=== PATIENT | female | born 1945 | race Caucasian/White ===

== ENCOUNTER 2021-05-22 11:38 | Emergency (ER) | payer MEDICARE, OTHER, SELFPAY ==
[2021-05-22 11:51] VITALS: BP 115/74; PULSE 76; RESP 18; TEMP 36.6; O2SAT 98
[2021-05-22 12:26] VITALS: BP 115/74; PULSE 76; RESP 18; TEMP 36.6; O2SAT 98
--- NOTE | 2021-05-22 12:37 | ED.EAR ---
HPI - Ear Problem General Chief complaint: Ear Stated complaint: Possible Ear infection in left Ear Time Seen by Provider: 05/22/21 12:37 Source: patient Mode of arrival: ambulatory Limitations: no limitations History of Present Illness HPI Narrative: Feli Nguyen is a 75 yo female with a PMH of GERD and depression who [facility] with left ear pain that started at 2:00 in the morning on Wednesday and has not substantially improved. She has been using Tylenol or ibuprofen for pain. She called her primary care physician for an appointment and he said the earliest they could see her was September She has tardive dyskinesia from psychiatric medications; states that her current level of depression is well controlled Related Data Home Medications Medication Instructions Recorded Confirmed albuterol sulfate 2 puff INHALATION QID PRN 05/22/21 05/22/21 alprazolam 0.25 mg PO BID 05/22/21 05/22/21 amlodipine 10 mg PO DAILY 05/22/21 05/22/21 atorvastatin 40 mg PO DAILY 05/22/21 05/22/21 azelastine 137 mcg INTRANASAL Q12H 05/22/21 05/22/21 uawftdfahm-yqinmtvvpazba-gloc 1 tablet PO Q4H PRN 05/22/21 05/22/21 [Esgic] caffeine 200 mg PO BID 05/22/21 05/22/21 deutetrabenazine 24 mg PO BID 05/22/21 05/22/21 donepezil 10 mg PO BID 05/22/21 05/22/21 fluticasone propion-salmeterol 1 inh INHALATION Q12H 05/22/21 05/22/21 fluticasone propionate 1 spray INTRANASAL DAILY 05/22/21 05/22/21 gabapentin 300 mg PO TID 05/22/21 05/22/21 metoclopramide HCl 10 mg PO DAILY 05/22/21 05/22/21 omeprazole 20 mg PO BID 05/22/21 05/22/21 oxybutynin chloride 5 mg PO DAILY 05/22/21 05/22/21 sertraline 200 mg PO DAILY 05/22/21 05/22/21 temazepam 15 mg PO HS PRN 05/22/21 05/22/21 trihexyphenidyl 5 mg PO QID 05/22/21 05/22/21 Allergies Allergy/AdvReac Type Severity Reaction Status Date / Time amitriptyline Allergy Anxiety Verified 05/22/21 14:09 amoxicillin Allergy Hallucinati Verified 05/22/21 14:08 ng ondansetron Allergy Hallucinati Verified 05/22/21 14:08 ng sumatriptan Allergy Anxiety Verified 05/22/21 14:09 lithium AdvReac Intermediate Agitated Uncoded 05/22/21 12:49 Review of Systems Review of Systems: CONSTITUTIONAL: Denies fever, chills, sweats. EYES: Denies visual changes, redness, discharge. ENT: Denies rhinorrhea, congestion, sore throat, left otalgia. CARDIOVASCULAR: Denies chest pain, palpitations, edema. RESPIRATORY: Denies dyspnea, wheezing, cough GASTROINTESTINAL: Denies abdominal pain, nausea, vomiting, diarrhea. GENITOURINARY: Denies dysuria, hematuria, abnormal discharge SKIN: Denies rash or itching. NEUROLOGIC: Denies numbness, or focal weakness. PSYCHIATRIC: Denies anxiety or depression. [facility] Past Medical History Medical History Depression Parkinsons Tardive dyskinesia Family History Family History Other Adopted Social History Social History (Updated 05/22/21 @ 12:44 by Christal Madrid CNP) Smoking status: Never smoker Alcohol intake: never Comments At time of signature, I agree with nursing past medical, surgical, social and family history. There is no relevant family history pertinent to the presenting complaint. Exam Narrative: GENERAL: This is a well-nourished, well-developed patient, in mild distress. HEAD: normocephalic, atraumatic. EYES: . Sclera clear/white. Vision is grossly intact. EARS: External ears normal, auditory canal clear , erythema on left and without drainage, some cerumen in canal also TMs normal without perforation. Hearing grossly intact. NOSE: External nose normal without nasal discharge, nares without redness, no rhinorrhea. THROAT: Mucous membranes moist, NECK: Neck supple, non-tender CARDIOVASCULAR: Regular rate and rhythm without murmurs, gallops, or rubs. RESPIRATORY: Clear to auscultation. Breath sounds equal bilaterally. No wheezes, rales,
== END 2021-05-22 12:54 | disposition home or self-care (01) ==
PROVIDERS: Emergency Provider Nurse Practitioner; PCP Family Medicine
DX: H66.002 Acute suppurative otitis media without spontaneous rupture of ear drum, left ear (principal); G20 Parkinson's disease; G24.01 Drug induced subacute dyskinesia; F32.9 Major depressive disorder, single episode, unspecified
CPT/HCPCS: 99213; G0463